=== PATIENT | female | born 1955 | race Caucasian/White ===

== ENCOUNTER 2021-10-26 14:05 | Outpatient (CLI) | payer MEDICARE, MEDICAID | END 2021-10-26 14:06 | disposition home or self-care (01) | LOC: CSHMRI 14:05 | PROVIDERS: ATTEND Family Medicine | DX: M50.10 Cervical disc disorder with radiculopathy, unspecified cervical region (principal); Z98.1 Arthrodesis status; R29.898 Other symptoms and signs involving the musculoskeletal system | CPT/HCPCS: 72156; 82565 ==

== ENCOUNTER 2024-10-04 14:41 | Outpatient (CLI) | payer OTHER, MEDICAID | END 2024-10-04 14:42 | disposition home or self-care (01) | LOC: CSHMRI 14:41 | PROVIDERS: ATTEND Specialist | DX: M47.22 Other spondylosis with radiculopathy, cervical region (principal); Z98.890 Other specified postprocedural states | CPT/HCPCS: 72141 ==

== ENCOUNTER 2025-08-09 08:36 | Observation (INO) | payer OTHER, MEDICAID ==
[2025-08-05 14:22] VITALS: BMI 26.6
[2025-08-09 09:25] LABS: Hematocrit 47.2 % (34.9-44.5); Hemoglobin 14.7 g/dL (12.0-15.5); Platelet Count 337 10x3/uL (150-450)
[2025-08-09 09:41] LABS: Anion Gap 14 mmol/L (10-20); BUN (Urea Nitrogen) 11 mg/dL (9.8-20.1); Calc. Creatinine Clearance 64 mL/min (70-130); Calcium 10.3 mg/dL (7.8-10.44); Carbon Dioxide 27 mmol/L (23-31); Chloride 107 mmol/L (98-107); Glucose 96 mg/dL (80-115); Potassium 4.0 mmol/L (3.5-5.1); Sodium 144 mmol/L (136-145)
[2025-08-09] MEDS ORDERED: Ondansetron PF 4 MG/2 ML Vial ONE (10:16)
[2025-08-09] MEDS ORDERED: SUGAMMADEX SODIUM 200 MG/2 ML VIAL ONE (10:16)
[2025-08-09] MEDS ORDERED: Lidocaine 1% PF 5 ML VIAL ONE (10:16)
[2025-08-09] MEDS ORDERED: PROPOFOL 20 ML ONE (10:16)
[2025-08-09] MEDS ORDERED: Rocuronium Bromide 10 MG/ML (10ML VIAL) ONE (10:16)
[2025-08-09] MEDS ORDERED: CEFAZOLIN 2 GM VIAL ONE (11:19)
[2025-08-09] MEDS ORDERED: Lidocaine 1% w/Epinephrine 1:200K 30 ML VIAL ONE (11:19)
[2025-08-09] MEDS ORDERED: PHENYLEPHRINE-NS 100 MCG/ML 10 ML SYRINGE ONE (11:57)
[2025-08-09] MEDS ORDERED: Ondansetron PF 4 MG/2 ML Vial IVP PRN (13:12)
[2025-08-09] MEDS: Calcium Carbonate 500 MG ChewTAB PO SCH (15:30)
[2025-08-09] MEDS: Acetaminophen 325 MG TAB PO SCH (15:30)
[2025-08-09] MEDS ORDERED: Ibuprofen 400 MG TAB PO SCH (16:00)
[2025-08-09] MEDS: Ibuprofen 200 MG TAB PO SCH (16:35)
[2025-08-09 17:40] LABS: Calcium 9.5 mg/dL (7.8-10.44)
[2025-08-10 02:18] LABS: Calcium 9.8 mg/dL (7.8-10.44)
[2025-08-10 04:21] VITALS: TEMP 97.8
[2025-08-10 05:31] LABS: Albumin 3.3 g/dL (3.1-4.5); Anion Gap 14 mmol/L (10-20); BUN (Urea Nitrogen) 15 mg/dL (9.8-20.1); Calc. Creatinine Clearance 66 mL/min (70-130); Calcium 9.6 mg/dL (7.8-10.44); Carbon Dioxide 25 mmol/L (23-31); Chloride 105 mmol/L (98-107); Glucose 156 mg/dL (80-115); Potassium 4.4 mmol/L (3.5-5.1); Sodium 140 mmol/L (136-145)
[2025-08-10 08:03] LABS: Calcium 10.5 mg/dL (7.8-10.44)
[2025-08-10] MEDS: Enoxaparin 40 MG (0.4 mL) SYRINGE SC SCH (08:17)
[2025-08-10 10:56] VITALS: BP 119/63
== END 2025-08-10 11:43 | disposition home or self-care (01) ==
LOC: CSHSDC 08:36 → CSHTELE 15:12
PROVIDERS: ADMIT Otolaryngology; ATTEND Otolaryngology
PROC: 0GBR0ZZ Excision of Parathyroid Gland, Open Approach (ICD-10-PCS; principal; 2025-08-09)
DX: D35.1 Benign neoplasm of parathyroid gland (principal); E21.0 Primary hyperparathyroidism; F17.200 Nicotine dependence, unspecified, uncomplicated; Z88.5 Allergy status to narcotic agent
CPT/HCPCS: 60500; 71045; 80048 ×2; 82040; 82310 ×2; 83970; 85014; 85018; 85049; 94760; J1100; J1650; J2704; 36415; 88305; 88331